=== PATIENT | female | born 1995 | race Caucasian/White ===

== ENCOUNTER 2017-03-13 12:30 | Outpatient (CLI) | payer BC ==
[~2017-03-13 12:30] MED LIST: DOCU-131 PO; IBUP-1223 PO; OXYC-302 PO
[2017-03-13] MEDS ORDERED: BETAMETHASONE 6 MG/ML, 5ML IM ONE (13:00)
== END 2017-03-13 13:10 | disposition home or self-care (01) ==
LOC: LDOP 12:30
PROVIDERS: ATTEND Obstetrics & Gynecology
DX: Z23 Encounter for immunization (principal)
CPT/HCPCS: 59025; 99211; J0702; G0463

== ENCOUNTER 2017-03-20 01:00 | Inpatient (IN) | payer BC ==
[~2017-03-20] VITALS: Ht 172.7 cm; Wt 68.2 kg
[2017-03-20] MEDS ORDERED: D5%-LACTATED RINGERS 1,000 ML IV SCH (01:24)
[2017-03-20] MEDS ORDERED: OXYTOCIN 30U/ 0.9% NaCL 500ML 500 ML IV PRN (01:24)
[2017-03-20] MEDS ORDERED: OXYTOCIN 30U/ 0.9% NaCL 500ML 500 ML IV ONE (01:24)
[2017-03-20] MEDS ORDERED: LACTATED RINGERS 1,000 ML IV SCH (01:24)
[2017-03-20] MEDS ORDERED: SODIUM CITRATE/CITRIC ACID 30 ML UDC PO PRN (01:30)
[2017-03-20] MEDS ORDERED: LACTATED RINGERS 1,000 ML IVBOLUS PRN (01:30)
[2017-03-20] MEDS ORDERED: CALCIUM CARBONATE 500 MG TAB.CHEW PO PRN (01:30)
[2017-03-20] MEDS ORDERED: METOCLOPRAMIDE 5 MG/ML, 2ML IVPush PRN (01:30)
[2017-03-20] MEDS ORDERED: FENTANYL PF 100 MCG/2ML IV PRN (01:30)
[2017-03-20] MEDS ORDERED: ONDANSETRON 2MG/ML, 2ML IVPush PRN (01:30)
[2017-03-20] MEDS ORDERED: LIDOCAINE 1%, 20ML ONE ×2 (01:31→01:32)
[2017-03-20] MEDS ORDERED: NEWBORN KIT ONE (01:31)
[2017-03-20] MEDS ORDERED: OXYTOCIN 30U/ 0.9% NaCL 500ML 500 ML ONE ×2 (01:32→08:22)
[2017-03-20] MEDS ORDERED: MISOPROSTOL 200 MCG TABLET ONE (01:32)
[2017-03-20 02:01] VITALS: BP 106/68
[2017-03-20 02:02] LABS: HEMATOCRIT 40.2 % (34.6-47.8); HEMOGLOBIN 13.6 g/dL (11.7-16.4); WHITE BLOOD COUNT 13.6 x10^3/uL (3.4-10)
[2017-03-20] MEDS ORDERED: FENTANYL PF 100 MCG/2ML ONE ×2 (06:18→07:09)
[2017-03-20] MEDS: FENTANYL PF 100 MCG/2ML IVPush PRN ×2 (06:21→07:13)
[2017-03-20] MEDS ORDERED: OXYTOCIN 30U/ 0.9% NaCL 500ML 500 ML IV SCH (07:21)
[2017-03-20] MEDS ORDERED: MISOPROSTOL 200 MCG TABLET PR PRN (07:30)
[2017-03-20] MEDS ORDERED: OXYcodone/APAP 5/325MG TABLET PO PRN (07:30)
[2017-03-20] MEDS ORDERED: METHYLERGONOVINE 0.2 MG/ML IM PRN (07:30)
[2017-03-20] MEDS ORDERED: ONDANSETRON 2MG/ML, 2ML IV PRN (07:30)
[2017-03-20] MEDS ORDERED: ACETAMINOPHEN 325 MG TABLET PO PRN ×2 (07:30)
[2017-03-20] MEDS ORDERED: IBUPROFEN 600 MG TABLET ONE (08:21)
[2017-03-20] MEDS ORDERED: OXYcodone/APAP 5/325MG TABLET ONE (08:21)
[2017-03-20] MEDS: OXYcodone/APAP 5/325MG TABLET PO PRN ×2 (08:23→17:53)
[2017-03-20] MEDS: IBUPROFEN 600 MG TABLET PO PRN ×2 (08:23→17:53)
[2017-03-20 08:50] VITALS: BP 117/69
[2017-03-20] MEDS: PRENATAL VIT/IRON/FA 1 EACH TABLET PO SCH (09:00)
[2017-03-20 15:10] VITALS: BP 111/69
[2017-03-20 17:53] LABS: HEMATOCRIT 36.9 % (34.6-47.8); HEMOGLOBIN 12.5 g/dL (11.7-16.4); WHITE BLOOD COUNT 18.4 x10^3/uL (3.4-10)
[2017-03-20] MEDS ORDERED: RHOGAM FROM BLOOD BANK 1 NOTE EA IM/IV ONE (20:00)
[2017-03-20 20:15] VITALS: BP 97/68
[2017-03-21 00:45] VITALS: BP 110/72
[2017-03-21] MEDS: DOCUSATE 100 MG CAPSULE PO PRN ×2 (05:24→09:58)
[2017-03-21] MEDS: OXYcodone/APAP 5/325MG TABLET PO PRN ×3 (05:24→21:05)
[2017-03-21] MEDS: IBUPROFEN 600 MG TABLET PO PRN ×3 (05:24→21:05)
[2017-03-21 07:25] VITALS: BP 126/63
[2017-03-21] MEDS: PRENATAL VIT/IRON/FA 1 EACH TABLET PO SCH (09:57)
[2017-03-21 21:00] VITALS: BP 104/65
[2017-03-22] MEDS ORDERED: IBUP-1222 PO ×2 (00:46→07:55)
[2017-03-22] MEDS: IBUPROFEN 600 MG TABLET PO PRN (05:03)
[2017-03-22] MEDS: OXYcodone/APAP 5/325MG TABLET PO PRN (05:03)
== END 2017-03-22 12:35 | disposition home or self-care (01) | DRG 775 ==
LOC: LDOP 01:00 → LDIP 01:24 → 2NW 08:42
PROVIDERS: ADMIT Obstetrics & Gynecology; ATTEND Obstetrics & Gynecology
PROC: 10E0XZZ Delivery of Products of Conception, External Approach (ICD-10-PCS; principal; 2017-03-20)
PROC: 0KQM0ZZ Repair Perineum Muscle, Open Approach (ICD-10-PCS; 2017-03-20)
DX: O34.211 Maternal care for low transverse scar from previous cesarean delivery (principal); O60.14X0 Preterm labor third trimester with preterm delivery third trimester, not applicable or unspecified; Z3A.36 36 weeks gestation of pregnancy; O70.1 Second degree perineal laceration during delivery; Z37.0 Single live birth
CPT/HCPCS: 36415; 85025; 85461; 86850; 86900; 89060; J2790; J3010; J2590; J7120; Q0114